=== PATIENT | female | born 1990 | race African-American/Black ===

== ENCOUNTER 2019-04-28 16:09 | Emergency (ER) | payer MEDICAID ==
[~2019-04-28] VITALS: Ht 162.6 cm; Wt 129.3 kg
[2019-04-28 17:10] LABS: URINE BILIRUBIN NEGATIVE (Negative); URINE BLOOD NEGATIVE (Negative); URINE CLARITY CLEAR; URINE COLOR YELLOW; URINE GLUCOSE-RANDOM* NEGATIVE (Negative); URINE KETONES NEGATIVE (Negative); URINE LEUKOCYTES-REFLEX NEGATIVE (Negative); URINE NITRITE-REFLEX NEGATIVE (Negative); URINE PROTEIN (DIPSTICK) NEGATIVE (Negative); URINE UROBILINOGEN 0.2 E.U./dl (0.2-1.0)
[2019-04-28 17:18] LABS: AMP/METHAMP Negative (Negative); BARBITURATES Negative (Negative); BENZODIAZEPINES Negative (Negative); COCAINE Negative (Negative); METHADONE Negative (Negative); OPIATES Negative (Negative); PCP Negative (Negative)
[2019-04-28 17:50] LABS: ABSOLUTE NEUTROPHILS 5.7 thou/uL (1.4-8.2); BASOPHILS 0.8 % (0.0-2.0); EOSINOPHILS 2.2 % (0.0-3.0); HEMATOCRIT 38.7 % (37.0-47.0); HEMOGLOBIN 12.9 gm/dL (12.0-15.0); LYMPHOCYTES 32.9 % (24.0-44.0); MCH 25.8 pg (26.0-34.0); MCHC 33.3 g/dL (28.0-37.0); MCV 77.5 fL (80.0-100.0); MONOCYTES 6.4 % (1.0-8.0); PLATELET COUNT 283 thou/uL (150-400); POLYS 57.7 % (36.0-66.0); RDW 16.7 % (10.5-14.5); WBC 9.9 thou/uL (4.0-11.0)
[2019-04-28 18:00] LABS: ANION GAP 9 mmol/L (7-16); BUN 8 mg/dL (7-18); CALCIUM 9.2 mg/dL (8.5-10.1); CHLORIDE 101 mmol/L (98-107); CO2 26 mmol/L (21-32); GLUCOSE 119 mg/dL (74-106); SODIUM 136 mmol/L (136-145)
[2019-04-28 18:07] LABS: ALBUMIN 3.2 g/dL (3.4-5.0); SALICYLATE < 2.8 mg/dL (2.8-20.0); SGOT 20 U/L (15-37); SGPT 22 U/L (30-65); TOTAL BILIRUBIN < 0.1 mg/dL (<0.1-1.0); TOTAL PROTEIN 7.7 g/dL (6.4-8.2)
[2019-04-28 19:50] VITALS: BP 132/90
--- NOTE | 2019-05-01 13:03 | HC ---
[facility] [address] [place] [address] CONSULTATION Name: ÁNGEL MARCUM Room #: DEP M.Chuck.#: [id number] Admission: 04/28/19 Attend Phys: Discharge: 04/28/19 Date of : 89 Report #: [id number] THIS REPORT FOR: //name// CC: TERESA physician/PCP Ashley Stevenson DATE OF SERVICE: 04/28/2019 EMERGENCY ROOM PSYCHIATRIC EVALUATION EMERGENCY ROOM Provider: VALDEMAR Galarza CONSULTING PSYCHIATRIST: Alber Shah DO [facility] PHYSICIAN: Jose Eduardo Jiménez DO REASON FOR ER REFERRAL: Apparently, the patient made some references. The patient had apparently expressed suicidal thoughts at night, had been not taking specific medication. HISTORY OF PRESENT ILLNESS: This is a 28-year-old morbidly obese female who is under guardianship to her mother, Lisa Marcum is her guardian. With regards to the patient being sent to the ED, the patient reports she has been at [facility] in [place] for a month and a half. She smokes spaces during the day and not in any structured programming. She is not receiving psychotherapy. The patient was reported to have had a sore throat as well that began 2 weeks ago. She feels like heartburn has been constant, complains of foreign body stuck in her throat, stating that there is a ball in there, increased pain with swallowing. Denies any relieving factors. The patient reportedly as well had been verbally aggressive towards staff, noncompliant. PAST MEDICAL HISTORY: Schizoaffective disorder, bipolar type, also chronic rhinitis. ALLERGIES: No known allergies. SOCIAL HISTORY: She says less than 100 cigarettes in life to ER but contradicts what the patient told me. REVIEW OF SYSTEMS: In the ER: CONSTITUTIONAL: Negative for fever or chills. EYES: Negative for eye pain or visual change. HENT: Negative for rhinorrhea. [facility] [address] [place] [address] CONSULTATION Name: ÁNGEL MARCUM Room #: DEP Harry#: [id number] Admission: 04/28/19 Attend Phys: Discharge: 04/28/19 Date of : 89 Report #: [id number] RESPIRATORY: Negative for cough or shortness of breath. CARDIOVASCULAR: Negative for chest pain or palpitations. GASTROINTESTINAL: Negative for abdominal pain, nausea, vomiting or diarrhea. GENITOURINARY: Negative for burning, urgency, frequency or hematuria. MUSCULOSKELETAL: Negative for back pain or muscle pain. SKIN: Negative for any rashes. NEUROLOGICAL: Negative for numbness, tingling or weakness. ENDOCRINE: Negative for diabetes and hypothyroidism. HEMATOLOGIC AND LYMPHATIC: Negative for easy bruising or bleeding. Otherwise 10-point review of systems is negative. PHYSICAL EXAMINATION: VITAL SIGNS: Weight 129.28 kilos, 285 pounds. PHYSICAL EXAM: Grossly normal, dressed in hospital gown, elevated upright on gurney. THROAT: Showed posterior pharyngeal drainage and cobblestoning in appearance. LABORATORY DATA: Done in the ER on my recommendation: Sodium 136, potassium 4.0, chloride 101, bicarbonate 26, anion gap 9, BUN 8, creatinine 1.0, estimated GFR 81, glucose 119, calcium 9.2, total bilirubin less than 0.1, AST 20, ALT 22, alkaline phosphatase 81, total protein 7.7, albumin 3.2. Hematology: White count 9.9, H and H 12.9 and 38.7, platelet count 283. UDS is negative. Urine is negative. Strep rapid screen completely looks like it is negative. It has been sent for culture. MENTAL STATUS EXAMINATION: This is a well-developed, well-nourished, obese female, curly hair. Attention intact. Concentration intact. Speech normal rate and normal tone. Thought process is linear and goal directed. Thought content focused on the present. No psychomotor agitation, no psychomotor retardation. Mood and affect congruent and euthymic. Denied SI or HI. Denied hopelessness or helplessness. Memory not formally tested. Insight limited. Judgment fair to limited. Fund of knowledge greater than average. FORMULATION: A 28-year-old obese female brought to the ER for suicidality screening. DIAGNOSIS: Schizoaffective disorder, bipolar type. MEDICAL DIAGNOSES: Sore throat, postnasal drip and rhinitis. RECOMMENDATIONS AND PLAN: The patient does not meet criteria for adult inpatient psychiatric admission. Due to her age, she also is not a candidate for Geriatric Psychiatry admission. She appears to be on a combination of Haldol, Depakote, Prozac, possibly Seroquel, benzodiazepine. I do not think I have an accurate medication list, but that needs to be reevaluated. The patient will benefit from structured programming, day programming, supportive [address] [address] CONSULTATION Name: TRIXIEÁNGEL Room #: DEP AMADOU Mcdonald#: [id number] Admission: 04/28/19 Attend Phys: Discharge: 04/28/19 Date of : 89 Report #: [id number] employment, also legal psychotherapy. Time spent on interview, review of records, coordination of care for this patient is at least 60 minutes. <ELECTRONICALLY SIGNED> By: Alber Shah DO 05/01/19 [id number] Alber Shah DO /nt
== END 2019-04-28 19:52 | disposition home or self-care (01) ==
LOC: ER 16:09
PROVIDERS: Physician Assistant
DX: J02.9 Acute pharyngitis, unspecified (principal); R45.1 Restlessness and agitation; F20.9 Schizophrenia, unspecified